=== PATIENT | male | born 1955 | race Caucasian/White ===

== ENCOUNTER → 2017-02-17 | Outpatient (CLI) | payer BC ==
[~2017-02-17] MED LIST: ASPCH81X PO; BROM0.07 OPR; GLC/500 PO; INSU3INJ2 SC; LISI-725 PO; PRED1SUS3 OPR; SIMV40TA4 PO; SITA100T3 PO
[2017-02-17 17:38] LABS: HEMATOCRIT 42.2 % (42-52); MEAN CELL VOLUME 90.4 fL (80-100); MEAN CORPUSCULAR HGB CONC 33.2 g/dl (32-36); MEAN PLATELET VOLUME 11.1 fL (7.4-10.4); PLATELET COUNT 246 K/uL (130-400); RED BLOOD COUNT 4.67 M/uL (4.7-6.1); WHITE BLOOD COUNT 5.33 K/uL (4.8-10.8)
[2017-02-17 18:11] LABS: ALT/SGPT 55 U/L (12-78); AST/SGOT 31 U/L (15-37); BLOOD UREA NITROGEN 13 mg/dl (7-18); BUN/CREATININE RATIO 15.2 (10-20); CARBON DIOXIDE 26 mmol/L (21-32); CHLORIDE 104 mmol/L (98-107); CREATININE 0.84 mg/dl (0.60-1.40); GLUCOSE 198 mg/dl (70-99); POTASSIUM 4.4 mmol/L (3.5-5.1); SODIUM 138 mmol/L (136-145)
[2017-02-17 18:21] LABS: ALB/GLOB RATIO 1.4 (0.9-2); ALKALINE PHOSPHATASE 41 U/L (45-117); CHOLESTEROL 111 mg/dl (0-200); CHOLESTEROL/HDL RATIO 2.5; HDL CHOLESTEROL 44 mg/dl; LDL CHOLESTEROL CALCULATED 42 mg/dl; TRIGLYCERIDES 125 mg/dl (0-150); VERY LOW DENSITY LIPOPROT CALC 25 mg/dl
[2017-02-18 07:03] LABS: ESTIMATED AVERAGE GLUCOSE 212 mg/dl; HA1C FLAG Normal (Normal)
== END | disposition home or self-care (01) ==
LOC: C.LABBFT 11:21
PROVIDERS: ATTEND Internal Medicine
DX: E11.65 Type 2 diabetes mellitus with hyperglycemia (principal)

== ENCOUNTER → 2017-08-12 | Outpatient (CLI) | payer BC ==
[2017-08-12 13:28] LABS: ALT/SGPT 47 U/L (12-78); BLOOD UREA NITROGEN 15 mg/dl (7-18); BUN/CREATININE RATIO 17.9 (10-20); CALCIUM 8.9 mg/dl (8.5-10.1); CARBON DIOXIDE 26 mmol/L (21-32); CHLORIDE 103 mmol/L (98-107); CHOLESTEROL 127 mg/dl (0-200); CREATININE 0.85 mg/dl (0.60-1.40); GLUCOSE 192 mg/dl (70-99); POTASSIUM 4.2 mmol/L (3.5-5.1); SODIUM 137 mmol/L (136-145); TRIGLYCERIDES 111 mg/dl (0-150); VERY LOW DENSITY LIPOPROT CALC 22 mg/dl
[2017-08-12 13:31] LABS: ALB/GLOB RATIO 1.2 (0.9-2); ALKALINE PHOSPHATASE 40 U/L (45-117); AST/SGOT 30 U/L (15-37); CHOLESTEROL/HDL RATIO 2.8; HDL CHOLESTEROL 45 mg/dl; LDL CHOLESTEROL CALCULATED 60 mg/dl
[2017-08-12 14:04] LABS: RATIO 8.3 mcg/mg (0-30.0)
[2017-08-12 14:04] LABS: ESTIMATED AVERAGE GLUCOSE 258 mg/dl; HA1C FLAG Normal (Normal)
== END | disposition home or self-care (01) ==
LOC: C.LABBFT 07:41
PROVIDERS: ATTEND Internal Medicine
DX: E11.65 Type 2 diabetes mellitus with hyperglycemia (principal)

== ENCOUNTER 2023-12-10 12:45 | Inpatient (IN) ==
[2023-12-10] MEDS: OPTIRAY 320 125ml IV ONE (13:10)
--- NOTE | 2023-12-10 13:14 | Emergency Department Note ---
Impression & Plan Stroke-like symptoms, Vertigo, Ataxia, Stenosis of left vertebral artery ED Provider Note NAME: SMILEY VILLALOBOS AGE: 68 SEX: M : 1955 ARRIVES VIA: Walk-In INFORMANT: Patient, the patient's [id number] ED PROVIDER(S): Elijah Harmon DO CHIEF COMPLAINT: Vertigo HPI: The patient is a 68-year-old male who presented to the emergency department for an evaluation of dizziness and vertigo. The patient's symptoms began at approximately 1030 this morning. 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 When he was inside resting he noticed he had an acute onset of dizziness and was unable to walk. Family brought him to the emergency department after his symptoms were not resolved. He was having trouble ambulating and kept falling forward. The patient denies having any headache. He denies having any fever or falling. He denies having any changes to his medications. He has no history of stroke but does have a history of diabetes as well as hypertension. ROS: See above HPI for pertinent positives & negatives. A total of 10 systems reviewed and were otherwise negative. PAST MEDICAL HISTORY: See Below PAST SURGICAL HISTORY: See Below FAMILY HISTORY: See Below SOCIAL HISTORY: See Below HOME MEDICATIONS: See Below ALLERGIES: See Below VITALS: See Below PHYSICAL EXAMINATION: GENERAL: Patient is awake and alert. The patient is anxious and does not want to open his eyes. EYES: The conjunctivae are clear. The pupils are round and reactive. There was nystagmus in both horizontal directions especially to the left. Some rotary nystagmus was also noted. EARS, NOSE, MOUTH AND THROAT: The nose is without any evidence of any deformity. Mucous membranes are moist. Tongue is midline. NECK: The neck is nontender and supple. RESPIRATORY: Normal respiratory effort is noted there is no evidence of wheezing rhonchi or rales CARDIOVASCULAR: Regular rate and rhythm noted there no murmurs rubs or gallops normal S1 normal S2. GASTROINTESTINAL: The abdomen is soft. Abdomen is nontender. MUSCULOSKELETAL/EXTREMITIES: There is no evidence of gross deformity full range of motion is noted in the hips and shoulders. SKIN: There is no obvious evidence of any rash. There are no petechiae, pallor or cyanosis noted. NEUROLOGIC: Patient is awake alert and oriented x3. Strength is symmetric. There is no drift in the upper extremities. The patient is able to hold each leg off the bed for greater than 5 seconds. [id number] was slow but appears symmetric. MEDICAL DECISION MAKING: The patient is a 68-year-old male who presented to the emergency department for an evaluation of dizziness. The patient was triaged to a regular room. After my evaluation I was concerned the patient may be suffering from a central nervous system cause for his vertigo. The patient did have rotary nystagmus. The patient had ataxia. Otherwise his physical exam did not reveal any focal neurologic deficits. He did have some episodes of some speech that was difficult to understand but his [id number] states that he sometimes will speak like this when he is not feeling well. Because of concerns for central nervous system cause he was made a stroke alert. He was taken directly to CAT scan and then moved to room A1. The patient was evaluated again in the resuscitation bay. Symptoms did not significantly change. I discussed his condition with the telestroke neurologist. After their evaluation as well as the patient's angiography showing vertebral artery stenosis it was felt that the patient may be suffering from a stroke causing his symptoms and therefore they recommended consideration for TNK. I evaluated the patient once again at bedside and at that time the stroke neurologist was on the telestroke machine. Risks and benefits were reviewed with the patient and verbally he consented to TNK. The TNK order set was used. I discussed the patient's condition with the [facility] hospitalist group. They have agreed to evaluate the patient in the emergency department for further management and disposition. The patient was treated with Zofran as well. Triage Nursing notes reviewed. Prior medical records reviewed Vital Signs: reviewed and remarkable for initial hypertension. Differential diagnosis: Benign positional vertigo, dehydration, hypovolemia, anemia, tumor, infection, hypoglycemia, electrolyte abnormalities, cardiac sources, intracerebral event, toxicologic, neurologic, as well as other pathologies. ER treatment provided: See below Diagnostics interpreted by me: ECG: EKG was obtained in the emergency department. My interpretation is normal sinus rhythm at 65 bpm. There is no ectopy. There is no acute ST segment abnormalities noted. This was compared to a tracing from April 19, 2022. No changes were noted. Cardiac Monitoring: An order was placed for continuous cardiac monitoring. The monitor shows a rate of 63 bpm with sinus rhythm Laboratory studies: As stated above and show below. Imaging studies: See below. Radiographic imaging was reviewed by myself Consultation(s): I discussed this case with Dr. Hopper who is on-call for the [facility] telestroke neurologist. I discussed this case with Chilango who is covering for the [facility] hospitalist group. ED COURSE: Procedures: none Critical Care: I have personally spent greater than 45 minutes of critical care time in the direct management of this patient. This includes bedside care, interpretation of diagnostic studies, and testing, discussion with consultants, patient, and family members, and other required patient management activities. This 45 minutes is in excess of all separately billable procedures. Thrombolytics MDM Reason(s) for Delay: It is possible there was a delay in administration of TNK given the patient was not identified as having strokelike symptoms initially through triage. As soon as he was evaluated he was made a stroke alert by myself. Past Med/Surg History Medical History Achilles rupture, left Hypothyroidism no meds at present History of COVID-25 Feb 2021 > not hospitalized Ileus, postoperative (2019) resolved on own Kidney mass LEFT > removed > benign Plantar fasciitis Hypertension Hyperlipidemia Surgical History H/O partial nephrectomy left. 07/01/19: Grade 2 view, MAC 4, ETT 8.0 atraumatic x 1. History of tooth extraction History of cataract surgery RT/LEFT History of total knee replacement RT History of colonoscopy Family History Grandfather Arthritis Grandmother Arthritis Mother Diabetes Hx of CABG Cancer Cardiac disorder Breast cancer Myocardial infarction Daughter Metastatic melanoma Father Cancer Prostate cancer Denies family history of Ovarian cancer Lung cancer Colorectal cancer Social History Smoking Status: Never smoker Second Hand Exposure: No; Do You Dip or Chew Tobacco: No; Hx Alcohol Use: No Hx Substance Use: No Preferred Language: Wallisian Communication Ability: Effective 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 Beliefs That Will Affect Care: None Current Living Situation: Family current occupational status: employed and retired Feels Safe at Home: Yes Diet: regular caffeine: Yes (rare ) Physical Activity Frequency: Daily Seatbelt Use: always Sunscreen Use: No Assistive Devices: Denture - Upper and Denture - Lower Allergies Allergies Allergy/AdvReac Type Severity Reaction Status Date / Time morphine AdvReac Intermediate SEVERE Verified 11/08/23 08:53 NAUSEA AND VOMITING Home Meds Home Medications Medication Instructions Recorded Confirmed naproxen sodium 220 mg tablet 440 - 880 mg PO BID PRN Pain 06/19/20 11/08/23 (Aleve) acetaminophen 325 mg tablet 325 mg PO QID PRN Pain 04/19/22 11/08/23 (Tylenol) aspirin 81 mg tablet,delayed 81 mg PO DAILY 12/27/22 11/08/23 release Previous Rx's Medication Instructions Recorded insulin syringe-needle U-100 0.5 #100 ea 03/23/19 mL 29 gauge x 1/2" (BD Insulin Syringe) blood sugar diagnostic (OneTouch #100 ea 12/03/20 Ultra Blue Test Strip) metformin 500 mg tablet 1,000 mg (2 x 500 mg) PO BID #360 01/04/23 tabs simvastatin 40 mg tablet 40 mg PO QPM #90 tabs 01/04/23 insulin human U-100 NPH-regulr 60 unit (0.6 mL) subcut BID #40 mL 01/31/23 70-30 mix 100 unit/mL subcutaneous susp (Novolin 70/30 U-100 Insulin) lisinopril 40 mg tablet 40 mg PO QAM 90 days #90 tabs 10/13/23 amlodipine 2.5 mg tablet 2.5 mg PO DAILY 30 days #30 tabs 11/08/23 tirzepatide 2.5 mg/0.5 mL 2.5 mg (0.5 mL) subcut .q7days 28 11/08/23 subcutaneous pen injector days #2 mL (Mounjaro) Results & Data (ED) Vital Signs Vital Signs - 24 hr 12/10/23 12:46 12/10/23 13:03 12/10/23 13:24 Temperature Temperature Source Pulse Rate 68 62 68 Pulse Rate [Apical] Pulse Rate from SpO2 Sensor 68 Pulse Rhythm [Apical] Pulse Strength [Apical] Respiratory Rate 26 H 17 Respiratory Effort / Characteristics Respiratory Depth Normal Respiratory Pattern Blood Pressure 169/77 H 153/74 H Blood Pressure [Right Arm] Blood Pressure Mean 107 100 Blood Pressure Mean [Right Arm] Blood Pressure Position [Right Arm] Pulse Oximetry 98 98 Oxygen Delivery Method Room Air Room Air Sepsis Recent Fever Within 48 Hours No Sepsis New/Unexplained Change in Mental Status No Sepsis Action Taken by Nursing No Action Required 12/10/23 13:30 12/10/23 13:45 12/10/23 14:00 Temperature Temperature Source Pulse Rate 63 67 68 Pulse Rate [Apical] Pulse Rate from SpO2 Sensor 63 67 68 Pulse Rhythm [Apical] Pulse Strength [Apical] Respiratory Rate 15 18 13 Respiratory Effort / Characteristics Respiratory Depth Respiratory Pattern Blood Pressure 152/66 H 149/69 H 147/65 H Blood Pressure [Right Arm] Blood Pressure Mean 94 95 92 Blood Pressure Mean [Right Arm] Blood Pressure Position [Right Arm] Pulse Oximetry 97 94 98 Oxygen Delivery Method Room Air Room Air Room Air Sepsis Recent Fever Within 48 Hours Sepsis New/Unexplained Change in Mental Status Sepsis Action Taken by Nursing 12/10/23 14:22 12/10/23 14:30 12/10/23 14:45 Temperature 36.8 C 36.7 C Temperature Source Oral Oral Pulse Rate Pulse Rate [Apical] 64 67 63 Pulse Rate from SpO2 Sensor Pulse Rhythm [Apical] Regular Regular Regular Pulse Strength [Apical] Normal Normal Normal Respiratory Rate 16 16 17 Respiratory Effort / Characteristics Non-Labored Spontaneous Non-Labored Spontaneous Non-Labored Spontaneous Respiratory Depth Normal Normal Normal Respiratory Pattern Regular Regular Regular Blood Pressure Blood Pressure [Right Arm] 136/69 132/70 137/72 Blood Pressure Mean Blood Pressure Mean [Right Arm] 91 90 93 Blood Pressure Position [Right Arm] Semi-fowlers Semi-fowlers Semi-fowlers Pulse Oximetry 97 98 100 Oxygen Delivery Method Room Air Room Air Room Air Sepsis Recent Fever Within 48 Hours Sepsis New/Unexplained Change in Mental Status Sepsis Action Taken by Nursing 12/10/23 14:45 Temperature 36.7 C Temperature Source Oral Pulse Rate Pulse Rate [Apical] 63 Pulse Rate from SpO2 Sensor Pulse Rhythm [Apical] Regular Pulse Strength [Apical] Normal Respiratory Rate 17 Respiratory Effort / Characteristics Non-Labored Spontaneous Respiratory Depth Normal Respiratory Pattern Regular Blood Pressure Blood Pressure [Right Arm] 137/72 Blood Pressure Mean Blood Pressure Mean [Right Arm] 93 Blood Pressure Position [Right Arm] Semi-fowlers Pulse Oximetry 99 Oxygen Delivery Method Room Air Sepsis Recent Fever Within 48 Hours Sepsis New/Unexplained Change in Mental Status Sepsis Action Taken by Alf Medications Current Medication List: was personally reviewed by nv Laboratory Data Attestation: I reviewed the patient's lab results. 12/10/23 13:00 12/10/23 13:00 Lab Results 12/10/23 12/10/23 Range/Units 12:53 13:00 WBC 10.68 (4.8-10.8) K/ul RBC 4.57 L (4.70-6.10) M/uL Hgb 13.6 L (14.0-18.0) g/dl Hct 40.7 L (42.0-52.0) % MCV 89.1 (80.0-100.0) fL MCH 29.8 (25.0-34.0) pg MCHC 33.4 (32.0-36.0) g/dL RDW Std Deviation 40.1 (36.4-46.3) fL RDW Coeff of Anibal 12.3 (11.5-14.5) % Plt Count 315 (130-400) K/uL MPV 9.8 (9.4-12.4) fL Immature Gran % (Auto) 0.6 % Neut % (Auto) 67.2 % Lymph % (Auto) 25.6 % Lagrange % (Auto) 5.1 % Eos % (Auto) 1.2 % Baso % (Auto) 0.3 % Neut # (Auto) 7.18 H (1.40-6.50) K/uL Lymph # (Auto) 2.73 (1.20-3.40) K/uL Lagrange # (Auto) 0.55 (0.11-0.59) K/uL Eos # (Auto) 0.13 (0.00-0.50) K/uL Baso # (Auto) 0.03 (0.00-0.20) K/uL Immature Gran # (Auto) 0.06 (0.01-0.20) K/uL PT 11.0 (9.0-12.0) Seconds INR 1.0 (0.9-1.1) APTT 23 (21-31) Seconds PTT Ratio 0.8 Sodium 137 (136-145) mmol/L Potassium 4.1 (3.5-5.1) mmol/L Chloride 100 (98-107) mmol/L Carbon Dioxide 25 (21-32) mmol/L Anion Gap 12 H (3-11) BUN 23 (6-23) mg/dl Creatinine 0.78 (0.6-1.4) mg/dl Est Cr Clr Drug Dosing 120.6 ml/min Est GFR ( Amer) 109.0 ml/min Est GFR (Non-Af Amer) 94.1 ml/min BUN/Creatinine Ratio 29.5 H (10-20) Glucose 190 H (70-99(Fasting)) mg/dl POC Glucose 168 H (70-99) mg/dl Calcium 9.9 (8.6-10.3) mg/dl Magnesium 1.7 (1.7-2.4) mg/dl Total Bilirubin 0.6 (0.2-1.0) mg/dl AST 24 (13-39) U/L ALT 24 (7-52) U/L Alkaline Phosphatase 36 (34-104) U/L Troponin I High Sens 3.0 (0-20) pg/ml Total Protein 7.7 (6.0-8.3) gm/dl Albumin 4.4 (3.4-5.0) gm/dl Globulin 3.3 (2.5-4.0) gm/dl Albumin/Globulin Ratio 1.3 (0.9-2) Administered Medications Discontinued Medications Tenecteplase 25 mg/ Syringe 5 mls @ 60 mls/min IV NOW ONE; Protocol Stop: 12/10/23 14:10 Last Admin: 12/10/23 14:07 Dose: 60 mls/min Documented By: JAMES Co-signed By: ZIGGY Ioversol (Optiray 320 125ml) 116 ml IV ONCE ONE Stop: 12/10/23 13:10 Last Admin: 12/10/23 13:10 Dose: 116 ml Documented By: SILVINO Lorazepam (Lorazepam 1 Mg/1 Ml Syr Ed Inj Use) 0.5 mg IV ONE STA Stop: 12/10/23 13:04 Last Admin: 12/10/23 13:27 Dose: Not Given Documented By: JAMES Ondansetron HCl (Ondansetron Inj 2 Mg/Ml 2 Ml Vial) 4 mg IV NOW STA Stop: 12/10/23 13:04 Last Admin: 12/10/23 13:27 Dose: 4 mg Documented By: JAMES Sodium Chloride (Sodium Chloride 0.9% 10ml Flush) 20 ml IV NOW STA Stop: 12/10/23 14:00 Last Admin: 12/10/23 14:07 Dose: 20 ml Documented By: JAMES Imaging Data Attestation: I personally reviewed and interpreted this imaging study as follows: My Impression: 1 view chest x-ray was obtained in the emergency department. My interpretation is no free air or definite infiltrate, final report below. CT of the brain was obtained in the emergency department. My interpretation is no intracranial hemorrhage or mass effect, final report below. Radiologist's Impression: Chest X-Ray 12/10/23 13:03 XR chest 1V portable HISTORY: 68 years-old Male neuro deficit, acute stroke suspected acute strokelike symptoms COMPARISON: 06/07/2019 TECHNIQUE: AP view of the chest FINDINGS: Cardiac silhouette is enlarged. No pneumothorax, pleural effusion or overt pulmonary edema. Mild chronic interstitial coarsening. Bones appear grossly intact. IMPRESSION: No acute process. ACT 112: Negative or not required by law. The above report was generated using voice recognition software. It may contain grammatical, syntax or spelling errors. Electronically signed by: Kamaljit Conroy M.D. 12/10/2023 1:[address] 12/10/23 13:03 CT angio head w con, CT angio neck with con, CT head/brain wo con CLINICAL HISTORY: 68 years-old Male with neuro deficit, acute stroke suspected. Acute stroke like symptoms COMPARISON STUDY: None TECHNIQUE: Unenhanced axial CT scan of the brain is performed. Subsequently, following the IV administration of 116 cc of Optiray, CT angiogram of the head and neck was performed from the aortic arch to the skull apex. Images are reviewed in the axial, sagittal, and coronal planes. 3-D MIPS images are created and assessed. IV contrast was administered without complication. All measurements were obtained according to NASCET criteria. A dose lowering technique was utilized adhering to the principles of ALARA. CT DOSE: 1308.62 mGy.cm FINDINGS: CT BRAIN: There is no acute intracranial hemorrhage, midline shift, hydrocephalus, intracranial mass, territorial ischemia or abnormal extra-axial collections. No abnormal intra-axial or extra-axial enhancement. Involutional changes with probable mild chronic microvascular ischemic disease. Mastoid air cells and middle ear cavities are clear. No calvarial fracture. Mild mucosal thickening of the paranasal sinuses.. CT ANGIOGRAM OF THE HEAD AND NECK: Three-vessel morphology of the thoracic aortic arch. There is patency of the innominate and imaged subclavian arteries. The common and internal carotid arteries are widely patent. The bilateral anterior and middle cerebral arteries are also patent. Codominant vertebral arteries. Calcified plaque in the V4 segment left vertebral artery results in high-grade stenosis on image 25 series 6. This is likely chronic. Mild multifocal stenoses of the patent basilar artery. There is no aneurysm, high-grade stenosis, or proximal branch occlusion identified. Dural sinuses appear patent. Pulmonary apices are clear. No pneumothorax. Unremarkable soft tissues. No acute fracture. IMPRESSION: 1. No acute intracranial abnormality. 2. Calcified plaque of the V4 segment left vertebral artery results in short segment high-grade stenosis. 3. Otherwise unremarkable CTA of the head and neck. ACT 112: Negative or not required by law. The above report was generated using voice recognition software. It may contain grammatical, syntax or spelling errors. Electronically signed by: Kamaljit Conroy M.D. 12/10/2023 1:29 PM Head CTA 12/10/23 13:03 CT angio head w con, CT angio neck with con, CT head/brain wo con CLINICAL HISTORY: 68 years-old Male with neuro deficit, acute stroke suspected. Acute stroke like symptoms COMPARISON STUDY: None TECHNIQUE: Unenhanced axial CT scan of the brain is performed. Subsequently, following the IV administration of 116 cc of Optiray, CT angiogram of the head and neck was performed from the aortic arch to the skull apex. Images are reviewed in the axial, sagittal, and coronal planes. 3-D MIPS images are created and assessed. IV contrast was administered without complication. All measurements were obtained according to NASCET criteria. A dose lowering technique was utilized adhering to the principles of ALARA. CT DOSE: 1308.62 mGy.cm FINDINGS: CT BRAIN: There is no acute intracranial hemorrhage, midline shift, hydrocephalus, intracranial mass, territorial ischemia or abnormal extra-axial collections. No abnormal intra-axial or extra-axial enhancement. Involutional changes with probable mild chronic microvascular ischemic disease. Mastoid air cells and middle ear cavities are clear. No calvarial fracture. Mild mucosal thickening of the paranasal sinuses.. CT ANGIOGRAM OF THE HEAD AND NECK: Three-vessel morphology of the thoracic aortic arch. There is patency of the innominate and imaged subclavian arteries. The common and internal carotid arteries are widely patent. The bilateral anterior and middle cerebral arteries are also patent. Codominant vertebral arteries. Calcified plaque in the V4 segment left vertebral artery results in high-grade stenosis on image 25 series 6. This is likely chronic. Mild multifocal stenoses of the patent basilar artery. There is no aneurysm, high-grade stenosis, or proximal branch occlusion identified. Dural sinuses appear patent. Pulmonary apices are clear. No pneumothorax. Unremarkable soft tissues. No acute fracture. IMPRESSION: 1. No acute intracranial abnormality. 2. Calcified plaque of the V4 segment left vertebral artery results in short segment high-grade stenosis. 3. Otherwise unremarkable CTA of the head and neck. ACT 112: Negative or not required by law. The above report was generated using voice recognition software. It may contain grammatical, syntax or spelling errors. Electronically signed by: Kamaljit Conroy M.D. 12/10/2023 1:29 PM Neck CTA 12/10/23 13:03 CT angio head w con, CT angio neck with con, CT head/brain wo con CLINICAL HISTORY: 68 years-old Male with neuro deficit, acute stroke suspected. Acute stroke like symptoms COMPARISON STUDY: None TECHNIQUE: Unenhanced axial CT scan of the brain is performed. Subsequently, following the IV administration of 116 cc of Optiray, CT angiogram of the head and neck was performed from the aortic arch to the skull apex. Images are reviewed in the axial, sagittal, and coronal planes. 3-D MIPS images are created and assessed. IV contrast was administered without complication. All measurements were obtained according to NASCET criteria. A dose lowering technique was utilized adhering to the principles of ALARA. CT DOSE: 1308.62 mGy.cm FINDINGS: CT BRAIN: There is no acute intracranial hemorrhage, midline shift, hydrocephalus, intracranial mass, territorial ischemia or abnormal extra-axial collections. No abnormal intra-axial or extra-axial enhancement. Involutional changes with probable mild chronic microvascular ischemic disease. Mastoid air cells and middle ear cavities are clear. No calvarial fracture. Mild mucosal thickening of the paranasal sinuses.. CT ANGIOGRAM OF THE HEAD AND NECK: Three-vessel morphology of the thoracic aortic arch. There is patency of the innominate and imaged subclavian arteries. The common and internal carotid arteries are widely patent. The bilateral anterior and middle cerebral arteries are also patent. Codominant vertebral arteries. Calcified plaque in the V4 segment left vertebral artery results in high-grade stenosis on image 25 series 6. This is likely chronic. Mild multifocal stenoses of the patent basilar artery. There is no aneurysm, high-grade stenosis, or proximal branch occlusion identified. Dural sinuses appear patent. Pulmonary apices are clear. No pneumothorax. Unremarkable soft tissues. No acute fracture. IMPRESSION: 1. No acute intracranial abnormality. 2. Calcified plaque of the V4 segment left vertebral artery results in short segment high-grade stenosis. 3. Otherwise unremarkable CTA of the head and neck. ACT 112: Negative or not required by law. The above report was generated using voice recognition software. It may contain grammatical, syntax or spelling errors. Electronically signed by: Kamaljit Conroy M.D. 12/10/2023 1:29 PM Discharge Plan Visit Data Chief Complaint: Illness Stated Complaint: DIZZY SPELLS, VOMITING, NUMB ED Provider: Elijah Harmon Discharge Problem: Stroke-like symptoms, Vertigo, Ataxia, Stenosis of left vertebral artery Patient Disposition: Being Evaluated by Hospitalist Forms Stand Alone Forms: [facility] [employer] Prescriptions Prescriptions: No Action (DME) insulin syringe-needle U-100 [BD Insulin Syringe] 0.5 mL 29 gauge x 1/2" syringe See Dose Instructions .ROUTE .MEDSUPPLY Qty: 100 5RF Dose Instruction: As directed Rx Instructions: use daily when injecting insulin or as directed (DME) OneTouch Ultra Blue Test Strip Strip See Rx Instructions .ROUTE .MEDSUPPLY Qty: 100 5RF Rx Instructions: TEST FOUR TIMES DAILY. metformin 500 mg tablet 1,000 mg PO BID Qty: 360 3RF simvastatin 40 mg tablet 40 mg PO QPM Qty: 90 3RF Novolin 70/30 U-100 Insulin 100 unit/mL (70-30) suspension 60 unit SQ BID Qty: 40 11RF lisinopril 40 mg tablet 40 mg PO QAM 90 Days Qty: 90 2RF aspirin 81 mg tablet,delayed release (DR/EC) 81 mg PO DAILY amlodipine 2.5 mg tablet 2.5 mg PO DAILY 30 Days Qty: 30 2RF Mounjaro 2.5 mg/0.5 mL pen injector 2.5 mg subcut .q7days 28 Days Qty: 2 1RF naproxen sodium [Aleve] 220 mg Tablet 440 - 880 mg PO BID PRN (Reason: Pain) acetaminophen [Tylenol] 325 mg Tablet 325 mg PO QID PRN (Reason: Pain) Referrals Referrals: Francoise Carlton MD [Primary Care Provider] -
[2023-12-10 13:23] LABS: Basophils # (auto) 0.03 K/uL (0.00-0.20); Basophils % (auto) 0.3 %; Eosinophils # (auto) 0.13 K/uL (0.00-0.50); Eosinophils % (auto) 1.2 %; Hematocrit (blood only) 40.7 % (42.0-52.0); Hemoglobin 13.6 g/dl (14.0-18.0); Immature Granulocytes # (auto) 0.06 K/uL (0.01-0.20); Immature Granulocytes % (auto) 0.6 %; Lymphocytes # (auto) 2.73 K/uL (1.20-3.40); Lymphocytes % (auto) 25.6 %; Mean Corpuscular Hemoglobin 29.8 pg (25.0-34.0); Mean Corpuscular Hgb Conc 33.4 g/dL (32.0-36.0); Mean Corpuscular Volume 89.1 fL (80.0-100.0); Mean Platelet Volume 9.8 fL (9.4-12.4); Monocytes # (auto) 0.55 K/uL (0.11-0.59); Monocytes % (auto) 5.1 %; Neutrophils # (auto) 7.18 K/uL (1.40-6.50); Neutrophils % (auto) 67.2 %; Platelet Count 315 K/uL (130-400); RDW Coefficient of Variation 12.3 % (11.5-14.5); RDW Standard Deviation 40.1 fL (36.4-46.3); Red Blood Count 4.57 M/uL (4.70-6.10); White Blood Count 10.68 K/ul (4.8-10.8)
[2023-12-10] MEDS: ONDANSETRON INJ 2 MG/ML 2 ML VIAL IV STA (13:27)
[2023-12-10] MEDS: LORazepam 1 MG/1 ML SYR ED Inj Use IV STA (13:27)
--- NOTE | 2023-12-10 13:31 | CT Scan Report ---
CT angio head w con, CT angio neck with con, CT head/brain wo con CLINICAL HISTORY: 68 years-old Male with neuro deficit, acute stroke suspected. Acute stroke like symptoms COMPARISON STUDY: None TECHNIQUE: Unenhanced axial CT scan of the brain is performed. Subsequently, following the IV adminis tration of 116 cc of Optiray, CT angiogram of the head and neck was performed from the aortic arch to the skull apex. Images are reviewed in the axial, sagittal, and coronal planes. 3-D MIPS images are created and assessed. IV contrast was administered without complication. All measurements were obtain ed according to NASCET criteria. A dose lowering technique was utilized adhering to the principles of ALARA. CT DOSE: 1308.62 mGy.cm FINDINGS: CT BRAIN: There is no acute intracranial hemorrhage, midline shift, hydrocephalus, intracranial mass, territori al ischemia or abnormal extra-axial collections. No abnormal intra-axial or extra-axial enhancement. Involutional changes with probable mild chronic microvascular ischemic disease. Mastoid air cells and middle ear cavities are clear. No calvarial fracture. Mild mucosal thickening of the paranasal sinus es.. CT ANGIOGRAM OF THE HEAD AND NECK: Three-vessel morphology of the thoracic aortic arch. There is patency of the innominate and imaged hoffman bclavian arteries. The common and internal carotid arteries are widely patent. The bilateral anterior and middle cerebral arteries are also patent. Codominant vertebral arteries. Calcified plaque in the V4 segment left vertebral artery results in high-grade stenosis on image 25 series 6. This is likely chronic. Mild multifocal stenoses of the patent basilar artery. There is no aneurysm, high-grade obed nosis, or proximal branch occlusion identified. Dural sinuses appear patent. Pulmonary apices are clear. No pneumothorax. Unremarkable soft tissues. No acute fracture. IMPRESSION: 1. No acute intracranial abnormality. 2. Calcified plaque of the V4 segment left vertebral artery results in short segment high-grade steno sis. 3. Otherwise unremarkable CTA of the head and neck. ACT 112: Negative or not required by law. The above report was generated using voice recognition software. It may contain grammatical, syntax o r spelling errors. Electronically signed by: Kamaljit Conroy M.D. 12/10/2023 1:29 PM
[2023-12-10 13:32] LABS: Albumin Globulin Ratio 1.3 (0.9-2); Albumin Level 4.4 gm/dl (3.4-5.0); BUN Creatinine Ratio 29.5 (10-20); Bilirubin,Total 0.6 mg/dl (0.2-1.0); Calcium 9.9 mg/dl (8.6-10.3); Creatinine Clr Calc Pharmacy 120.6 ml/min; Est GFR (Non-African American) 94.1 ml/min; Globulin 3.3 gm/dl (2.5-4.0); Magnesium 1.7 mg/dl (1.7-2.4); Potassium 4.1 mmol/L (3.5-5.1); Total Protein 7.7 gm/dl (6.0-8.3)
[2023-12-10 13:48] LABS: Partial Thromboplastin Ratio 0.8; Partial Thromboplastin Time 23 Seconds (21-31)
--- NOTE | 2023-12-10 13:58 | XRay Report ---
XR chest 1V portable HISTORY: 68 years-old Male neuro deficit, acute stroke suspected acute strokelike symptoms COMPARISON: 06/07/2019 TECHNIQUE: AP view of the chest FINDINGS: Cardiac silhouette is enlarged. No pneumothorax, pleural effusion or overt pulmonary edema. Mild psychiatry instructor yancy interstitial coarsening. Bones appear grossly intact. IMPRESSION: No acute process. ACT 112: Negative or not required by law. The above report was generated using voice recognition software. It may contain grammatical, syntax o r spelling errors. Electronically signed by: Kamaljit Conroy M.D. 12/10/2023 1:55 PM
[2023-12-10] MEDS ORDERED: No Aspirin within 24hrs of THROMBOLYTIC-Stroke PO SCH (14:00)
[2023-12-10] MEDS: TENECTEPLASE 25 MG in SYRINGE 0 ML IV ONE (14:07)
[2023-12-10] MEDS: SODIUM CHLORIDE 0.9% 10ML FLUSH IV STA (14:07)
--- NOTE | 2023-12-10 14:28 | History & Physical Report ---
Date of Service December 10, 2023 Assessment & Plan (1) Stenosis of left vertebral artery: Plan: Attending: Dr. Ivey Impression: This is a 68 yo male that presents with vertigo and some confusion. CTA Head and neck revealed high grade stenosis of V4 vertebral artery. TNK was administered. 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: Plan: Improved per report of patient Methylprednisolone 40mg IV q8h brien Meclizine 12.5mg PO TID brien Activity with assistance and then per nursing protocol (3) Stroke-like symptoms: Plan: See #1 above (4) Type 2 diabetes mellitus with obesity: Plan: Hold Novolin and Mounjaro Hyperglycemic consult requested NPO for now as patient is monitored for TNK HA1c 11/03/2023 7.5% (5) Angiomyolipoma of kidney: Plan: S/P partial nephrectomy 2019 Pathology benign Follow serial BMP (6) Hypertension: Plan: Allow for permissive hypertension Hold Lisinopril and Amlodipine Monitor on telemetry Vital signs per protocol (7) Hyperlipidemia: Plan: Hold atorvastatin for now. Anticipate that we will resume 40mg PO Daily tomorrow am Plan DVT prophylaxis: ELISABETH Nguyens. Hold chemical prophylaxis secondary to administration of TNK Diet NPO for now. If patient continues with NIH score of "0", resume per [facility] Code status: Patient DNR/DNI per his express wishes Case discussed with Dr. Ivey. Please refer to his addendum for further recommendations History of Present Illness Chief Complaint: Acute CVA vs positional vertigo Primary Care Provider: Francoise Carlton MD Attending: Dr. Ivey This is a 68-year-old male that follows with Dr. Francoise Carl[place] [facility] [place] He has a PMH including diabetes mellitus type 2 requiring insulin, obesity with BMI of 35.6 kg/m thyroidism, history of COVID-19, postoperative ileus in 2019, plantar fasciitis,, hypertension, hyperlipidemia. Patient also has a history of kidney mass and underwent partial nephrectomy. Patient presents today with vertigo. He was found to have some nystagmus on examination. NIH score was "0". He underwent CTA of the head head and neck which revealed high grade stenosis in the V4 segment of the left vertebral artery. Neurology was consulted and the decision was made to administer 25mg of Tenecteplase. This was administered at 14:09pm. Patient seen in emergency department at 14:27 for admission to the ICU for 24 hour observation. Patient denies any previous history of stroke or thromboembolic disease. No history of tobacco abuse. Home medications do include Atovastatin 40mg PO daily Allergies Allergy/AdvReac Type Severity Reaction Status Date / Time morphine AdvReac Intermediate SEVERE Verified 11/08/23 08:53 NAUSEA AND VOMITING Home Medications Medication Instructions Recorded Confirmed Type insulin syringe-needle U-100 0.5 #100 ea 03/23/19 12/10/23 Rx mL 29 gauge x 1/2" (BD Insulin Syringe) blood sugar diagnostic (OneTouch #100 ea 12/03/20 12/10/23 Rx Ultra Blue Test Strip) acetaminophen 325 mg tablet 650 mg PO QID PRN Pain 04/19/22 12/10/23 History (Tylenol) amlodipine 2.5 mg tablet 2.5 mg PO QAM 12/10/23 12/10/23 History aspirin 81 mg tablet,delayed 81 mg PO QAM 12/10/23 12/10/23 History release empagliflozin 25 mg tablet 25 mg PO QAM 12/10/23 12/10/23 History (Jardiance) insulin human U-100 NPH-regulr 60 unit subcut BID 12/10/23 12/10/23 History 70-30 mix 100 unit/mL subcutaneous susp (Novolin 70/30 U-100 Insulin) lisinopril 40 mg tablet 40 mg PO QAM 12/10/23 12/10/23 History metformin 500 mg tablet 1,000 mg PO BID 12/10/23 12/10/23 History simvastatin 40 mg tablet 40 mg PO QPM 12/10/23 12/10/23 History tirzepatide 2.5 mg/0.5 mL 2.5 mg subcut WK 12/10/23 12/10/23 History subcutaneous pen injector (Mounjaro) Past Med/Surg History Medical History (Updated 12/10/23 @ 15:10 by Zechariah Garcia MD) 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 07/01/19: Grade 2 view, MAC 4, ETT 8.0 atraumatic x 1. History of tooth extraction History of cataract surgery RT/LEFT History of total knee replacement RT History of colonoscopy Family History Grandfather Arthritis Grandmother Arthritis Mother Diabetes Hx of CABG Cancer Cardiac disorder Breast cancer Myocardial infarction Daughter Metastatic melanoma Father Cancer Prostate cancer Denies family history of Ovarian cancer Lung cancer Colorectal cancer Social History Smoking Status: Never smoker Second Hand Exposure: No; Do You Dip or Chew Tobacco: No; Hx Alcohol Use: No Hx Substance Use: No Preferred Language: Salvadorean Communication Ability: Effective Chemical Laboratory Technician Required: No Beliefs That Will Affect Care: None Current Living Situation: Family current occupational status: employed and retired Feels Safe at Home: Yes Diet: regular caffeine: Yes (rare ) Physical Activity Frequency: Daily Seatbelt Use: always Sunscreen Use: No Assistive Devices: Denture - Upper and Denture - Lower Review of Systems 2 Review of Systems: A total of 10 systems was reviewed and is negative other than as listed in the HPI Physical Exam 2 Physical Exam: GENERAL : No acute distress. Some slurred speech but [id number] sates that this is not unusual EYES: No icterus, gaze conjugate. PERRL NOSE: No evidence of epistaxis MOUTH: No lesions or candidiasis. No deviation of the tongue. No facial droop NECK: Supple. No carotid bruits LUNGS: CTA B/L, no wheezes, rales or rhonchi. Good inspirational effort. No induced cough. Patient has good cough effort HEART: Regular, rate controlled. No M/G/Rs ABDOMEN: Soft, NT, ND, BS Present. No rebound tenderness or guarding EXTREMITIES: No LE edema, pedal pulses intact and equal bilaterally NEURO: A&OX3. No pronator drift. DTRs 2/4 to bilateral brachioradialis and patellar tendons. PERRL. Strength equal and appropriate to upper and lower extremities bilaterally. Cerebellar function intact with rapid alternating movements, finger to nose, and heel to hartley. Gait and Romberg deferred. Sensation equal and intact bilaterally to face, arms, hands, legs, and feet. Results & Data Results & Data Vital Signs (Past 12 Hours) Vital Signs Pulse Resp BP Pulse Ox O2 Del Method 12/10/23 14:00 68 13 147/65 H 98 Room Air 12/10/23 13:45 67 18 149/69 H 94 Room Air 12/10/23 13:30 63 15 152/66 H 97 Room Air 12/10/23 13:24 68 17 153/74 H 98 Room Air 12/10/23 13:03 62 12/10/23 12:46 68 26 H 169/77 H 98 Room Air Laboratory Results Abnormal lab results 12/10/23 12/10/23 Range/Units 12:53 13:00 RBC 4.57 L (4.70-6.10) M/uL Hgb 13.6 L (14.0-18.0) g/dl Hct 40.7 L (42.0-52.0) % Neut # (Auto) 7.18 H (1.40-6.50) K/uL Anion Gap 12 H (3-11) BUN/Creatinine Ratio 29.5 H (10-20) Glucose 190 H (70-99(Fasting)) mg/dl POC Glucose 168 H (70-99) mg/dl 12/10/23 13:00 12/10/23 13:00 Diagnostic Findings Chest X-Ray 12/10/23 13:03 XR chest 1V portable HISTORY: 68 years-old Male neuro deficit, acute stroke suspected acute strokelike symptoms COMPARISON: 06/07/2019 TECHNIQUE: AP view of the chest FINDINGS: Cardiac silhouette is enlarged. No pneumothorax, pleural effusion or overt pulmonary edema. Mild chronic interstitial coarsening. Bones appear grossly intact. IMPRESSION: No acute process. ACT 112: Negative or not required by law. The above report was generated using voice recognition software. It may contain grammatical, syntax or spelling errors. Electronically signed by: Kamaljit Conroy M.D. 12/10/2023 1:[address] 12/10/23 13:03 CT angio head w con, CT angio neck with con, CT head/brain wo con CLINICAL HISTORY: 68 years-old Male with neuro deficit, acute stroke suspected. Acute stroke like symptoms COMPARISON STUDY: None TECHNIQUE: Unenhanced axial CT scan of the brain is performed. Subsequently, following the IV administration of 116 cc of Optiray, CT angiogram of the head and neck was performed from the aortic arch to the skull apex. Images are reviewed in the axial, sagittal, and coronal planes. 3-D MIPS images are created and assessed. IV contrast was administered without complication. All measurements were obtained according to NASCET criteria. A dose lowering technique was utilized adhering to the principles of ALARA. CT DOSE: 1308.62 mGy.cm FINDINGS: CT BRAIN: There is no acute intracranial hemorrhage, midline shift, hydrocephalus, intracranial mass, territorial ischemia or abnormal extra-axial collections. No abnormal intra-axial or extra-axial enhancement. Involutional changes with probable mild chronic microvascular ischemic disease. Mastoid air cells and middle ear cavities are clear. No calvarial fracture. Mild mucosal thickening of the paranasal sinuses.. CT ANGIOGRAM OF THE HEAD AND NECK: Three-vessel morphology of the thoracic aortic arch. There is patency of the innominate and imaged subclavian arteries. The common and internal carotid arteries are widely patent. The bilateral anterior and middle cerebral arteries are also patent. Codominant vertebral arteries. Calcified plaque in the V4 segment left vertebral artery results in high-grade stenosis on image 25 series 6. This is likely chronic. Mild multifocal stenoses of the patent basilar artery. There is no aneurysm, high-grade stenosis, or proximal branch occlusion identified. Dural sinuses appear patent. Pulmonary apices are clear. No pneumothorax. Unremarkable soft tissues. No acute fracture. IMPRESSION: 1. No acute intracranial abnormality. 2. Calcified plaque of the V4 segment left vertebral artery results in short segment high-grade stenosis. 3. Otherwise unremarkable CTA of the head and neck. ACT 112: Negative or not required by law. The above report was generated using voice recognition software. It may contain grammatical, syntax or spelling errors. Electronically signed by: Kamaljit Conroy M.D. 12/10/2023 1:29 PM L Head CTA 12/10/23 13:03 CT angio head w con, CT angio neck with con, CT head/brain wo con CLINICAL HISTORY: 68 years-old Male with neuro deficit, acute stroke suspected. Acute stroke like symptoms COMPARISON STUDY: None TECHNIQUE: Unenhanced axial CT scan of the brain is performed. Subsequently, following the IV administration of 116 cc of Optiray, CT angiogram of the head and neck was performed from the aortic arch to the skull apex. Images are reviewed in the axial, sagittal, and coronal planes. 3-D MIPS images are created and assessed. IV contrast was administered without complication. All measurements were obtained according to NASCET criteria. A dose lowering technique was utilized adhering to the principles of ALARA. CT DOSE: 1308.62 mGy.cm FINDINGS: CT BRAIN: There is no acute intracranial hemorrhage, midline shift, hydrocephalus, intracranial mass, territorial ischemia or abnormal extra-axial collections. No abnormal intra-axial or extra-axial enhancement. Involutional changes with probable mild chronic microvascular ischemic disease. Mastoid air cells and middle ear cavities are clear. No calvarial fracture. Mild mucosal thickening of the paranasal sinuses.. CT ANGIOGRAM OF THE HEAD AND NECK: Three-vessel morphology of the thoracic aortic arch. There is patency of the innominate and imaged subclavian arteries. The common and internal carotid arteries are widely patent. The bilateral anterior and middle cerebral arteries are also patent. Codominant vertebral arteries. Calcified plaque in the V4 segment left vertebral artery results in high-grade stenosis on image 25 series 6. This is likely chronic. Mild multifocal stenoses of the patent basilar artery. There is no aneurysm, high-grade stenosis, or proximal branch occlusion identified. Dural sinuses appear patent. Pulmonary apices are clear. No pneumothorax. Unremarkable soft tissues. No acute fracture. IMPRESSION: 1. No acute intracranial abnormality. 2. Calcified plaque of the V4 segment left vertebral artery results in short segment high-grade stenosis. 3. Otherwise unremarkable CTA of the head and neck. ACT 112: Negative or not required by law. The above report was generated using voice recognition software. It may contain grammatical, syntax or spelling errors. Electronically signed by: Kamaljit Conroy M.D. 12/10/2023 1:29 PM L Neck CTA 12/10/23 13:03 CT angio head w con, CT angio neck with con, CT head/brain wo con CLINICAL HISTORY: 68 years-old Male with neuro deficit, acute stroke suspected. Acute stroke like symptoms COMPARISON STUDY: None TECHNIQUE: Unenhanced axial CT scan of the brain is performed. Subsequently, following the IV administration of 116 cc of Optiray, CT angiogram of the head and neck was performed from the aortic arch to the skull apex. Images are reviewed in the axial, sagittal, and coronal planes. 3-D MIPS images are created and assessed. IV contrast was administered without complication. All measurements were obtained according to NASCET criteria. A dose lowering technique was utilized adhering to the principles of ALARA. CT DOSE: 1308.62 mGy.cm FINDINGS: CT BRAIN: There is no acute intracranial hemorrhage, midline shift, hydrocephalus, intracranial mass, territorial ischemia or abnormal extra-axial collections. No abnormal intra-axial or extra-axial enhancement. Involutional changes with probable mild chronic microvascular ischemic disease. Mastoid air cells and middle ear cavities are clear. No calvarial fracture. Mild mucosal thickening of the paranasal sinuses.. CT ANGIOGRAM OF THE HEAD AND NECK: Three-vessel morphology of the thoracic aortic arch. There is patency of the innominate and imaged subclavian arteries. The common and internal carotid arteries are widely patent. The bilateral anterior and middle cerebral arteries are also patent. Codominant vertebral arteries. Calcified plaque in the V4 segment left vertebral artery results in high-grade stenosis on image 25 series 6. This is likely chronic. Mild multifocal stenoses of the patent basilar artery. There is no aneurysm, high-grade stenosis, or proximal branch occlusion identified. Dural sinuses appear patent. Pulmonary apices are clear. No pneumothorax. Unremarkable soft tissues. No acute fracture. IMPRESSION: 1. No acute intracranial abnormality. 2. Calcified plaque of the V4 segment left vertebral artery results in short segment high-grade stenosis. 3. Otherwise unremarkable CTA of the head and neck. ACT 112: Negative or not required by law. The above report was generated using voice recognition software. It may contain grammatical, syntax or spelling errors. Electronically signed by: Kamaljit Conroy M.D. 12/10/2023 1:29 PM Medications Administered Code Status & VTE Plan Code Status Discussion with patient with [id number] present. He wishes to be a DNR/DNI and does not wish to has chest compressions or mechanical ventilation in the event of cardiopulmonary arrest Critical Care Time 45 minutes of critical care time Supervising Physician Co-Signing Physician Notes The patient was seen by me. The chart was reviewed. Case discussed with ANDERS Posada. Brain MRI scan report is pending. This could simply be an acute labyrinthitis. For the time being, he is on scheduled meclizine and parenteral Solu-Medrol. 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
[2023-12-10] MEDS ORDERED: PHARMACIST DISCHARGE MED REC CONSULT PRN ×2 (15:14→16:16)
--- NOTE | 2023-12-10 15:16 | Critical Care Consultation ---
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 Continue frequent neurovascular checks in the ICU. Maintain systolic blood pressures and diastolic blood pressures within goal. Head of the bed above 35 degrees. Aspiration precautions. Patient will need PT, OT and speech therapy consultations. Obtain echo study. Monitor on telemetry. Follow-up CT head in 24 hours to ensure no evidence of transformation from ischemia to hemorrhagic stroke. Patient will need an MRI of the brain. I also possibly need MRA of head and neck to better visualize posterior circulation. Hyperglycemia consult given history of type 2 diabetes mellitus. Avoid anticoagulants and antiplatelets for the next 24 hours. CODE STATUS discussion completed with the patient and the patient's [id number]. Patient would like to be a DNR/DNI in the event of a cardiopulmonary arrest. Plan of care coordinated with the hospitalist service. History of Present Illness Reason for Consultation: Stroke status post TNKase administration History of Present Illness 68-year-old male with a past medical history of type 2 diabetes mellitus, hypertension, hyperlipidemia, morbid obesity and degenerative joint disease presenting to the ER due to ongoing dizziness and vomiting. His last known normal was 10:30 AM this morning. 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 He then sat down for breakfast in the morning and soon after 10:30 AM he had severe dizziness with nausea and vomiting. He stood up and was falling forward. EMS was called and he was brought to the ER. There was a stroke protocol and he was evaluated by the [facility] stroke neurologist. The decision was made to give full dose TNKase and the patient was administered TNKase at 1407. His symptoms promptly resolved. His initial NIH stroke scale was 1 and is now currently 0. He denies any chest pain, shortness of breath, fevers or chills. He denies any nausea at this moment. He does endorse some very mild dizziness. He had a CT of his head and neck with and without contrast. Neck CT revealed calcified plaque of the V4 segment left vertebral artery resulting in short segment high-grade stenosis. Unremarkable CT head and neck otherwise. EKG normal sinus rhythm on admission. No signs of ischemic changes. Troponin unremarkable. Allergies Allergy/AdvReac Type Severity Reaction Status Date / Time morphine AdvReac Intermediate SEVERE Verified 11/08/23 08:53 NAUSEA AND VOMITING Home Medications Medication Instructions Recorded Confirmed Type insulin syringe-needle U-100 0.5 #100 ea 03/23/19 11/08/23 Rx mL 29 gauge x 1/2" (BD Insulin Syringe) naproxen sodium 220 mg tablet 440 - 880 mg PO BID PRN Pain 06/19/20 11/08/23 History (Aleve) blood sugar diagnostic (OneTouch #100 ea 12/03/20 11/08/23 Rx Ultra Blue Test Strip) acetaminophen 325 mg tablet 325 mg PO QID PRN Pain 04/19/22 11/08/23 History (Tylenol) aspirin 81 mg tablet,delayed 81 mg PO DAILY 12/27/22 11/08/23 History release metformin 500 mg tablet 1,000 mg (2 x 500 mg) PO BID #360 01/04/23 11/08/23 Rx tabs simvastatin 40 mg tablet 40 mg PO QPM #90 tabs 01/04/23 11/08/23 Rx insulin human U-100 NPH-regulr 60 unit (0.6 mL) subcut BID #40 mL 01/31/23 11/08/23 Rx 70-30 mix 100 unit/mL subcutaneous susp (Novolin 70/30 U-100 Insulin) lisinopril 40 mg tablet 40 mg PO QAM 90 days #90 tabs 10/13/23 11/08/23 Rx amlodipine 2.5 mg tablet 2.5 mg PO DAILY 30 days #30 tabs 11/08/23 11/08/23 Rx tirzepatide 2.5 mg/0.5 mL 2.5 mg (0.5 mL) subcut .q7days 28 11/08/23 11/08/23 Rx subcutaneous pen injector days #2 mL (Endyunjaro) Patient History Medical History (Updated 12/10/23 @ 15:10 by Zechariah Garcia MD) 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 07/01/19: Grade 2 view, MAC 4, ETT 8.0 atraumatic x 1. History of tooth extraction History of cataract surgery RT/LEFT History of total knee replacement RT History of colonoscopy Family History Grandfather Arthritis Grandmother Arthritis Mother Diabetes Hx of CABG Cancer Cardiac disorder Breast cancer Myocardial infarction Daughter Metastatic melanoma Father Cancer Prostate cancer Denies family history of Ovarian cancer Lung cancer Colorectal cancer Social History Smoking Status: Never smoker Second Hand Exposure: No; Do You Dip or Chew Tobacco: No; Hx Alcohol Use: No Hx Substance Use: No Preferred Language: Serbian Communication Ability: Effective 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 Patient is in no apparent distress. Patient is well-developed. Eyes: Pupils are equal round and reactive to light. Conjunctivae are normal. Anicteric sclera. Ears nose, mouth and throat: Mallampati class 2. Normal posterior oropharynx. Uvula is midline. Neck: Trachea is midline. Visual inspection is normal. Respiratory: Clear to auscultation bilaterally. No use of accessory muscles. No significant clubbing noted. Cardiovascular: Regular rate and rhythm. No murmurs. No edema. Gastrointestinal: Normal bowel sounds, soft, nontender and nondistended. No hepatosplenomegaly noted. Musculoskeletal: No cyanosis. Patient is able to move all extremities. Strength is 5 out of 5 in the upper and lower extremities. Skin: No rashes, warm dry and intact. Neurologic: No obvious focal neurological deficits seen. Psychiatric: Alert and oriented x3 with a euthymic affect. Results & Data Results & Data Vital Signs (Past 12 Hours) Vital Signs Temp Pulse Pulse Resp BP BP Pulse Ox 12/10/23 15:00 36.7 C 72 17 135/78 99 12/10/23 14:45 36.7 C 63 17 137/72 99 12/10/23 14:45 36.7 C 63 17 137/72 100 12/10/23 14:30 67 16 132/70 98 12/10/23 14:22 36.8 C 64 16 136/69 97 12/10/23 14:00 68 13 147/65 H 98 12/10/23 13:45 67 18 149/69 H 94 12/10/23 13:30 63 15 152/66 H 97 12/10/23 13:24 68 17 153/74 H 98 12/10/23 13:03 62 12/10/23 12:46 68 26 H 169/77 H 98 O2 Del Method 12/10/23 15:00 Room Air 12/10/23 14:45 Room Air 12/10/23 14:45 Room Air 12/10/23 14:30 Room Air 12/10/23 14:22 Room Air 12/10/23 14:00 Room Air 12/10/23 13:45 Room Air 12/10/23 13:30 Room Air 12/10/23 13:24 Room Air 12/10/23 13:03 12/10/23 12:46 Room Air Coding Level of Care Code 52904 IN/OBS CONSULT LVL 4,60M Diagnoses 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
[2023-12-10] MEDS ORDERED: ALUMINUM/MAGNESIUM/SIMETH (MAALOX MAX) 30 ML UDC PO PRN (16:16)
[2023-12-10] MEDS ORDERED: POLYETHYLENE (MIRALAX) 17 GM PACK PO PRN (16:16)
[2023-12-10] MEDS ORDERED: MECLIZINE 12.5 MG TAB PO SCH (16:16)
[2023-12-10] MEDS: ICU Protocol for HYPERglycemia SCH (17:29)
[2023-12-10] MEDS: ONDANSETRON INJ 2 MG/ML 2 ML VIAL IV PRN (17:29)
[2023-12-10] MEDS: methylPREDNISolone 40 MG in SYRINGE 0 ML IV SCH (17:29)
[2023-12-10] MEDS: MECLIZINE 12.5 MG TAB PO STA (17:30)
[2023-12-10] MEDS: COUGH DROP (SUGAR FREE) LOZ 24 LOZ/1 BOX BUCCAL ONE (17:58)
[2023-12-10] MEDS: STAT IV/IM STA (17:58)
[2023-12-10 18:07] LABS: Appearance Urine Clear (Clear); Bacteria Urine Automated Negative (Negative); Bilirubin Urine Negative (Negative); Blood Urine Negative (Negative); Color Urine Yellow; Glucose Urine UA Negative (Negative); Ketones Urine 1+ (Negative); Leukocyte Esterase Urine Negative (Negative); Nitrite Urine Negative (Negative); Protein Urine Trace (Negative); RBC Urine Automated 0-4 /hpf (0-4); Specific Gravity Urine > 1.045 (1.000-1.030); Urobilinogen Urine Negative (Negative)
[2023-12-10 18:25] LABS: Epithelial Cell Urine Auto 0-5 /lpf (0-5)
[2023-12-10] MEDS: COUGH DROP (SUGAR FREE) LOZ 24 LOZ/1 BOX BUCCAL STA (18:59)
--- NOTE | 2023-12-10 20:09 | Magnetic Resonance Report ---
MR brain wo con HISTORY: 68 years-old Male dizziness, possible CVA acute dizziness with stroke like symptoms COMPARISON: Head CT of same day TECHNIQUE: Multiplanar multisequence MRI of the brain was obtained without the use of IV contrast. FINDINGS: No restricted diffusion. Midline structures appear unremarkable. Degenerative changes of the imaged c ervical spine. No acute intracranial hemorrhage, midline shift, abnormal extra-axial collection, hydr ocephalus or intra-axial. Cerebral venous sinuses and major arterial flow voids appear patent. The sk ull, orbits and soft tissues are unremarkable. Prior bilateral lens repair. Mild mucosal thickening o f the paranasal sinuses. The mastoid air cells are clear. Mild T2/FLAIR hyperintense foci throughout the white matter suggestive of probable chronic microvascu lar ischemic disease. Mild involutional changes. IMPRESSION: No acute intracranial abnormality. No acute or subacute infarct. ACT 112: Negative or not required by law. The above report was generated using voice recognition software. It may contain grammatical, syntax o r spelling errors. Electronically signed by: Kamaljit Conroy M.D. 12/10/2023 8:07 PM
[2023-12-10] MEDS: MECLIZINE 12.5 MG TAB PO SCH (20:14)
[2023-12-10] MEDS ORDERED: GLUCOSE 10 TAB/TUBE PO PRN (23:31)
[2023-12-10] MEDS ORDERED: CARBOHYDRATES FOR HYPOGLYCEMIA PO PRN (23:31)
[2023-12-10] MEDS ORDERED: DEXTROSE 50% 50 ML SYRINGE IV PRN (23:31)
[2023-12-10] MEDS ORDERED: GLUCOSE 40% GEL 15 GM TUBE PO PRN (23:31)
[2023-12-10] MEDS ORDERED: GLUCAGON FOR INJ 1 MG VIAL SQ PRN (23:31)
[2023-12-11] MEDS: INSULIN ASPART PER UNIT CHARGE SC SCH (00:04)
[2023-12-11] MEDS: PANTOprazole 40 MG in SYRINGE 0 ML IV ONE (00:32)
[2023-12-11 04:20] LABS: Basophils # (auto) 0.02 K/uL (0.00-0.20); Basophils % (auto) 0.2 %; Eosinophils # (auto) 0.01 K/uL (0.00-0.50); Eosinophils % (auto) 0.1 %; Hematocrit (blood only) 42.6 % (42.0-52.0); Hemoglobin 14.3 g/dl (14.0-18.0); Immature Granulocytes # (auto) 0.06 K/uL (0.01-0.20); Immature Granulocytes % (auto) 0.5 %; Lymphocytes # (auto) 0.95 K/uL (1.20-3.40); Lymphocytes % (auto) 8.4 %; Mean Corpuscular Hemoglobin 29.7 pg (25.0-34.0); Mean Corpuscular Hgb Conc 33.6 g/dL (32.0-36.0); Mean Corpuscular Volume 88.6 fL (80.0-100.0); Monocytes % (auto) 0.9 %; Neutrophils # (auto) 10.22 K/uL (1.40-6.50); Neutrophils % (auto) 89.9 %; Platelet Count 326 K/uL (130-400); RDW Coefficient of Variation 12.3 % (11.5-14.5); RDW Standard Deviation 40.6 fL (36.4-46.3); Red Blood Count 4.81 M/uL (4.70-6.10); White Blood Count 11.36 K/ul (4.8-10.8)
[2023-12-11 04:35] LABS: BUN Creatinine Ratio 30.6 (10-20); Chol HDL Ratio 1.9 (0-5); Creatinine Clr Calc Pharmacy 110.6 ml/min; Est GFR (African American) 105.2 ml/min; Est GFR (Non-African American) 90.8 ml/min; Magnesium 1.8 mg/dl (1.7-2.4); Potassium 4.7 mmol/L (3.5-5.1)
--- NOTE | 2023-12-11 08:43 | Electrocardiogram Report ---
Test Reason : Blood Pressure : / mmHG Vent. Rate : 065 BPM Atrial Rate : 065 BPM P-R Int : 196 ms QRS Dur : 096 ms QT Int : 438 ms P-R-T Axes : 050 008 047 degrees QTc Int : 455 ms Normal sinus rhythm Normal ECG When compared with ECG of 19-APR-2022 11:40, Aberrant conduction is no longer Present Confirmed by Dorian Larose ([id number]) on 12/11/2023 8:43:16 AM Referred By: REFERRED SELF Confirmed By:Dorian Larose
--- NOTE | 2023-12-11 09:11 | XCELERA ---
[id number]
--- NOTE | 2023-12-11 10:27 | Critical Care Progress Note ---
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 MRI brain without evidence of acute stroke. Neurology consultation appreciated. Possible inner ear infection. Patient due for CT head status 24 hours status post tPA at around 1407. If that CT head is clear, will start with antiplatelets and DVT prophylaxis. Continue PT and OT therapy. Continue antihypertensives and high intensity statin Patient is stable for downgrade to the floor once CT head comes back negative. Admission and Anticipated Discharge Date Admission Date: December 10, 2023 Subjective Patient seen and examined. NIH stroke scale is 0. No overnight events. Neurology evaluated the patient and feels that he has a middle inner ear infection. Review of Systems Review of Systems: All systems reviewed & are unremarkable except as noted in HPI & below Physical Exam Physical Exam: Constitutional: Patient appears to be of their stated age. Patient is in no apparent distress. Patient is well-developed. Eyes: Pupils are equal round and reactive to light. Conjunctivae are normal. Anicteric sclera. Ears nose, mouth and throat: Mallampati class 2. Normal posterior oropharynx. Uvula is midline. Neck: Trachea is midline. Visual inspection is normal. Respiratory: Clear to auscultation bilaterally. No use of accessory muscles. No significant clubbing noted. Cardiovascular: Regular rate and rhythm. No murmurs. No edema. Gastrointestinal: Normal bowel sounds, soft, nontender and nondistended. No hepatosplenomegaly noted. Musculoskeletal: No cyanosis. Patient is able to move all extremities. Str ength is 5 out of 5 in the upper and lower extremities. Skin: No rashes, warm dry and intact. Neurologic: No obvious focal neurological deficits seen. Psychiatric: Alert and oriented x3 with a euthymic affect. Results & Data Results & Data Vital Signs (Past 12 Hours) Vital Signs Temp Pulse Pulse Resp BP Pulse Ox O2 Del Method 12/11/23 10:09 93 H 18 148/70 H 95 Room Air 12/11/23 09:09 97 H 20 151/82 H 95 Room Air 12/11/23 08:09 87 20 137/71 94 Room Air 12/11/23 07:09 91 H 20 123/66 95 Room Air 12/11/23 07:00 87 12/11/23 06:09 90 20 139/67 93 Room Air 12/11/23 05:09 86 22 117/52 L 93 Room Air 12/11/23 04:09 91 H 17 138/71 94 Room Air 12/11/23 03:50 36.8 C 12/11/23 03:09 84 20 112/57 L 94 Room Air 12/11/23 02:09 85 20 136/73 92 Room Air 12/11/23 01:09 92 H 14 109/70 96 Room Air 12/11/23 00:23 89 12/11/23 00:09 36.8 C 15 118/67 93 Room Air 12/10/23 23:09 89 19 141/62 H 92 Room Air Coding Level of Care Code 98393 SUB INP/OBS CARE Diagnoses 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
--- NOTE | 2023-12-11 10:32 | Neurology Consultation ---
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 The fact that he seemed "pulled to the right" means that it may have been the right inner ear. There is no evidence to suggest that this was central/cerebral and the MRI of the brain showed no acute stroke. The patient does have stenosis (likely old) of the left vertebral artery (V4 segment) but I am not certain this has anything to do with his symptoms. He did receive tPA but, again, I do not know if this made any improvement in his symptoms. His symptoms did get better overnight and he is only having very mild positional and resting vertigo. The patient has multiple stroke risk factors, including hypertension, longstanding diabetes, and dyslipidemia. He has been on 81 mg aspirin Recommendations: 1. Continue meclizine but consider 25 mg 3 times a day, if 12.5 does not help. He could do this regular for 1 week and then use it as needed. 2. Control blood pressure as you are doing 3. Control glucose as you are doing 4. Keep simvastatin the same at 40 mg a day. His total cholesterol is already quite low at 112. 5. Increase activity as able 6. Discontinue 81 mg ASA and replace with clopidogrel 75 mg daily. This may do a better job at keeping open large arteries. Overall, I spent a total of 75 minutes with this case including review of records, review of MRI films, direct evaluation the patient, report generation, and discussion of the case with the patient, RN, Dr. Garcia, and daughter at bedside, as well as Dr. Ivey, including differential diagnosis and treatment options. History of Present Illness Reason for Consultation: Patient is a 68-year-old, who I was asked to see at the request of Chilango Nassar PA-C and Dr. Hill, for neurologic consultation regarding possible stroke Requesting Physician: Dr. Garcia Attending Physician: Levy Ivey MD History of Present Illness This patient has a 20-year history of type 2 diabetes currently on insulin and metformin. He has a longstanding history of hypertension and dyslipidemia as well. He has been on 81 mg aspirin tablet daily for years. The patient's daughter is present during the history and physical. She helps add information. Patient tells me that over the last 2 weeks he has had intermittent episodes of vertiginous symptoms with 2 episodes lasting about an hour or so in the last week. He would have no nausea or vomiting and they faded away with time. On December 09, he woke up at 0200 as usual to milk counts. He came back in at 0430 and napped for 2 more hours (as usual). He got up and fed the animals and around 0900 he came in to make a breakfast (sutton, eggs, toast) he was doing well when around 1030, he stood up and suddenly had severe whirling and spinning being pulled to the right. His family noticed that he was walking to the left but the patient said this was to compensate because he was being pulled to the right. He had no ear pain, hearing loss, or tinnitus. This persisted by an hour he was having multiple nausea and vomiting episodes (over a dozen). When he left his head perfectly still lying flat with his eyes closed he felt a little better but he still had the vertigo. He did not notice any new vision issues or any focal weakness or numbness. He felt "drained" and weak all over. He had no speech or mentation problem that he was aware and his daughter verifies this although she felt that he may have had a little facial droop on the left. He arrived emergency room at 1246 on December 09, with a temperature of 36.8, pulse 68 and regular, respiratory rate 26, blood pressure 169/77, and O2 saturation 98%. His blood pressure lowered into the normal range in the ER. He continued to have significant positional vertigo. Neuroexam showed no focal findings, meningeal signs, or encephalopathy. CBC and CHEM profile were unremarkable although the glucose was 190. Chest x-ray was unremarkable. CT scan of the head showed no acute findings. CT angiography of the head and neck were remarkable only for a high-grade stenosis in the left V4 segment (vertebral). Echocardiogram showed some dilation of left atrium and left ventricle with no vegetations or shunt. MRI of the brain without contrast showed no acute stroke. There was no other lesions noted in the inner ears or brain. Some mild old nonspecific small vessel ischemic change was noted. I reviewed these films. This morning, CBC was unremarkable. White count was elevated as was glucose at 234, but the patient has been given IV methylprednisolone 40 mg on December 09. He was also given meclizine 12.5 mg 3 times a day. This morning he feels much better although he has some very slight vertiginous feelings at rest and with movement. He has no nausea or vomiting. He has no other issues or problems. He grades his vertiginous feelings as a 1 out of 10 compared to yesterday when it was 10 out of 10. He is eating well this morning. Blood pressure was 148/70. Rest of his labs were unremarkable. Hemoglobin A1c is pending and total cholesterol was 112. Triglycerides were 56. Allergies Allergy/AdvReac Type Severity Reaction Status Date / Time morphine AdvReac Intermediate SEVERE Verified 11/08/23 08:53 NAUSEA AND VOMITING Home Medications Medication Instructions Recorded Confirmed Type insulin syringe-needle U-100 0.5 #100 ea 03/23/19 12/10/23 Rx mL 29 gauge x 1/2" (BD Insulin Syringe) blood sugar diagnostic (OneTouch #100 ea 12/03/20 12/10/23 Rx Ultra Blue Test Strip) acetaminophen 325 mg tablet 650 mg PO QID PRN Pain 04/19/22 12/10/23 History (Tylenol) amlodipine 2.5 mg tablet 2.5 mg PO QAM 12/10/23 12/10/23 History aspirin 81 mg tablet,delayed 81 mg PO QAM 12/10/23 12/10/23 History release empagliflozin 25 mg tablet 25 mg PO QAM 12/10/23 12/10/23 History (Jardiance) insulin human U-100 NPH-regulr 60 unit subcut BID 12/10/23 12/10/23 History 70-30 mix 100 unit/mL subcutaneous susp (Novolin 70/30 U-100 Insulin) lisinopril 40 mg tablet 40 mg PO QAM 12/10/23 12/10/23 History metformin 500 mg tablet 1,000 mg PO BID 12/10/23 12/10/23 History simvastatin 40 mg tablet 40 mg PO QPM 12/10/23 12/10/23 History tirzepatide 2.5 mg/0.5 mL 2.5 mg subcut WK 12/10/23 12/10/23 History subcutaneous pen injector (Kirby) Patient History Medical History 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 07/01/19: Grade 2 view, MAC 4, ETT 8.0 atraumatic x 1. History of tooth extraction History of cataract surgery RT/LEFT History of total knee replacement RT History of colonoscopy Family History Grandfather Arthritis Grandmother Arthritis Mother , age 83 Diabetes Hx of CABG Cancer Cardiac disorder Breast cancer Myocardial infarction Daughter Metastatic melanoma Father Cancer Prostate cancer Denies family history of Ovarian cancer Lung cancer Colorectal cancer Social History (Updated 12/11/23 @ 10:21 by Vazquez Moon MD) Smoking Status: Never smoker Second Hand Exposure: No; Do You Dip or Chew Tobacco: No; Hx Alcohol Use: No Hx Substance Use: No Preferred Language: Greenlandic Communication Ability: Effective Volleyball Referee Required: No Beliefs That Will Affect Care: None Current Living Situation: Family current occupational status: employed current occupation: Current dairy machine operator farmworker Feels Safe at Home: Yes Diet: regular caffeine: Yes (rare ) Physical Activity Frequency: Daily Seatbelt Use: always Sunscreen Use: No Assistive Devices: Denture - Upper and Denture - Lower Review of Systems Constitutional: + fatigue and + weakness; no fever Eyes: no diplopia, no eye pain and no worsening vision Ear, Nose, Mouth, Throat: + dizziness; no ear pain, no tinnitus, n o hearing loss, no snoring, no hoarseness and no dysphagia Respiratory: no cough and no dyspnea Cardiovascular: no chest pain, no palpitations and no lightheadedness Gastrointestinal: no abdominal pain, no nausea and no vomiting Musculoskeletal: no back pain, no neck pain, no radicular pain, no joint pain and no myalgia Integumentary: no rash and no lesions Neurologic: + gait abnormality and + dizziness; no l ocalized weakness, no generalized weakness, no tingling, no numbness, no tremor(s), no abnormal movements, no headache(s), no abnormal speech, no confusion and no memory loss Psychiatric: no depression, no irritability, no anxiety, no difficulty concentrating, no confusion and no hallucinations Endocrine: no fatigue and no flushing Hematologic / Lymphatic: no easy bleeding and no easy bruising Allergy / Immunological: no urticaria and no problem reported Exam (Neuro) Physical Exam: The patient is right-handed. The patient is awake, alert, and attentive. Speech is normal without any aphasia or dysarthria. Mentation and thought processes are intact, with full orientation and normal fund of knowledge. Mood and affect are normal and appropriate. Appearance and grooming are normal. Short and long-term memory are intact. The discs are very difficult to visualize due to small pupils and previous cataract surgery. Pupils are 2-3 mm bilaterally and reactive to light. Extraocular eye muscles are intact without nystagmus. Visual acuity and visual chavez seem normal grossly to confrontation. There are no deficits to sensation in the face in all 3 distributions of the fifth cranial nerve bilaterally. Corneal reflexes are positive bilaterally. Faci al strength and symmetry was normal bilaterally. Hearing seems intact grossly to voice and finger rub bilaterally. Palate moves well without asymmetry. There is normal sternocleidomastoid and trapezius strength bilaterally. Tongue is midline with good strength bilaterally. Neck has a full range of motion without discomfort. There are no cervical bruits bilaterally. There are no cranial or ocular bruits. Heart is without murmur. There is a regular rhythm and rate. Cervical, thoracic, and lumbar spine are nontender to palpation. Gait was not tested but stance sitting up in bed is reasonable. There is no nystagmus. With outstretched arms there is no drift. There are no resting, postural, or action tremors. There is no ataxia with finger to nose testing. There is good facility in the hands. No other abnormal involuntary movements are noted. Motor strength is 5/5 diffusely in the arms bilaterally including deltoids, biceps, triceps, brachioradialis, wrist flexors and extensors, auto wrecker, and intrinsic hand muscles. Motor strength is 5/5 diffusely in the legs bilaterally including hip flexors, quadriceps, hamstrings, gastrocnemius, tibialis anterior, tibialis posterior, and Peroneii muscles bilaterally. Toe extensors are normal and there is good bulk in the extensor digitorum brevis muscles bilaterally. The limbs have good tone without rigidity or spasticity. There is no atrophy noted in the muscles. Muscle bulk is normal, there is no tenderness to palpation, no myotonia to percussion, and no fasciculations seen. Sensory examination is intact to touch and pin throughout all 4 limbs diffusely. Reflexes are 2/4 in the biceps, triceps, brachioradialis, and quadriceps tendons bilaterally. Achilles tendon reflexes are absent bilaterally. Toes are downgoing with plantar stimulation bilaterally. Peripheral pulses are present and of normal quality distally in all 4 limbs. There is no peripheral edema noted in the limbs. Results & Data Vital Signs (Past 12 Hours) Vital Signs Temp Pulse Pulse Resp BP Pulse Ox O2 Del Method 12/11/23 09:09 97 H 20 151/82 H 95 Room Air 12/11/23 08:09 87 20 137/71 94 Room Air 12/11/23 07:09 91 H 20 123/66 95 Room Air 12/11/23 07:00 87 12/11/23 06:09 90 20 139/67 93 Room Air 12/11/23 05:09 86 22 117/52 L 93 Room Air 12/11/23 04:09 91 H 17 138/71 94 Room Air 12/11/23 03:50 36.8 C 12/11/23 03:09 84 20 112/57 L 94 Room Air 12/11/23 02:09 85 20 136/73 92 Room Air 12/11/23 01:09 92 H 14 109/70 96 Room Air 12/11/23 00:23 89 12/11/23 00:09 36.8 C 15 118/67 93 Room Air 12/10/23 23:09 89 19 141/62 H 92 Room Air 12/10/23 22:09 89 18 137/77 91 Room Air PG Care Time/CCT Total # of Minutes Spent Total Time Spent with Patient: Total time spent is greater than 50% in coordination of care (as documented) at patient's floor/unit and/or counseling patient: Coding Level of Care Code 51372 INT INP/OBS CARE 3/75MIN Diagnoses Vertigo R42 Stenosis of left vertebral artery I65.02 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
--- NOTE | 2023-12-11 10:58 | Discharge Summary ---
Date of Service December 11, 2023 Admission HPI Per Admitting Provider Attending: Dr. Ivey This is a 68-year-old male that follows with Dr. Francoise Carlton with [facility]. He has a PMH including diabetes mellitus type 2 requiring insulin, obesity with BMI of 35.6 kg/m thyroidism, history of COVID-19, postoperative ileus in 2019, plantar fasciitis,, hypertension, hyperlipidemia. Patient also has a history of kidney mass and underwent partial nephrectomy. Patient presents today with vertigo. He was found to have some nystagmus on examination. NIH score was "0". He underwent CTA of the head head and neck which revealed high grade stenosis in the V4 segment of the left vertebral artery. Neurology was consulted and the decision was made to administer 25mg of Tenecteplase. This was administered at 14:09pm. Patient seen in emergency department at 14:27 for admission to the ICU for 24 hour observation. Patient denies any previous history of stroke or thromboembolic disease. No history of tobacco abuse. Home medications do include Atovastatin 40mg PO daily Principal Diagnosis Acute labyrinthitis with vertigo Discharge Exam General-alert and oriented x3, no fever, no chills HEENT-head atraumatic and normocephalic, pupils equal and reactive to light, extraocular muscles intact Neck-no lymphadenopathy or thyromegaly, trachea midline Chest-clear to auscultation percussion. No rales, wheezing or rhonchi Cardiac-regular rate and rhythm, normal S1 and S2 Abdomen-normal bowel sounds, nontender, no hepatosplenomegaly Extremities-no cyanosis, clubbing, or edema Neuro-cranial nerves II through XII intact, motor and sensory function within normal limits, strength symmetrical, no focal deficits. Vertiginous with head turning and movement Psych-normal affect, normal mood Discharge Data Allergies Allergy/AdvReac Type Severity Reaction Status Date / Time morphine AdvReac Intermediate SEVERE Verified 11/08/23 08:53 NAUSEA AND VOMITING Consultations 12/10/23 14:12 ED Decision to Admit Stat 12/10/23 15:14 Consult Neurology Routine 12/10/23 16:16 Consult Multiple Spindle Router Operator Routine Consult Neurology Routine Ordered Studies 12/10/23 13:03 CT angio head w con Stat CT angio neck with con Stat CT head/brain wo con Stat 12/10/23 15:13 MRI Brain [MR brain wo con] Urgent 12/11/23 14:53 CT head/brain wo con Routine Hospital Course (1) Vertigo: This appears to be acute labyrinthitis. He is now on meclizine and prednisone which will continue at discharge until he is symptom-free. He has been cautioned not to operate any heavy machinery until he has no further vertigo. Brain MRI scan negative for acute CVA. Appreciate neurology consultation and recommendations. (2) Stenosis of left vertebral artery: I branch of the left vertebral artery is occluded. It is impossible determine at what point this occurred. There is no associated CVA. 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 He was cautioned that prednisone may elevate somewhat while on prednisone (4) Hypertension: Stable. Continue current medical management (5) Hyperlipidemia: Stable. Continue current medical Plan Home today, December 10. He will remain on meclizine 12.5 mg 3 times a day and a tapering dose of prednisone. He was cautioned not to operate any heavy machinery until his vertigo completely resolves. He will follow-up with his PCP within 1 week. . Total Time Total Time Spent Total Time Spent (In Minutes): 50-minute Discharge Plan Discharge Items Patient Disposition: Home - Self-Care Reason For Visit: STROKE LIKE SYMPTOMS Discharge Diagnosis: Acute labyrinthitis with vertigo Activity: As commented below Activity Comment: Avoid operating any heavy machinery until vertigo has completely resolved Non-emergency contact: Primary Care Provider Call non-emergency contact if: your symptoms worsen Follow-up/Referrals: Francoise Carlton MD [Primary Care Provider] - Diet: Carb Consistent or DM2 and Heart Healthy Addtl Attending Provider Instructions: Avoid operating any heavy machinery until vertigo has completely resolved. Take prednisone in a tapering dose fashion as directed. Take meclizine 3 times daily until vertigo completely resolves then stop meclizine Pending Studies at Discharge: No Stand-Alone Forms: My [facility], Smoking Cessation Medications and DC Order Prescriptions: New meclizine 12.5 mg Tablet 12.5 mg PO TID Qty: 21 0RF prednisone 10 mg tablet See Rx Instructions .ROUTE .COMPLEX Qty: 12 0RF Rx Instructions: 10 mg orally 3 times a day for 2 days, then 10 mg twice a day for 2 days, then 10 mg once a day for 2 days, then stop Continued (DME) insulin syringe-needle U-100 [BD Insulin Syringe] 0.5 mL 29 gauge x 1/2" syringe See Dose Instructions .ROUTE .MEDSUPPLY Qty: 100 5RF Dose Instruction: As directed Rx Instructions: use daily when injecting insulin or as directed (DME) OneTouch Ultra Blue Test Strip Strip See Rx Instructions .ROUTE .MEDSUPPLY Qty: 100 5RF Rx Instructions: TEST FOUR TIMES DAILY. acetaminophen [Tylenol] 325 mg Tablet 650 mg PO QID PRN (Reason: Pain) Novolin 70/30 U-100 Insulin 100 unit/mL (70-30) suspension 60 unit SUBCUT BID amlodipine 2.5 mg tablet 2.5 mg PO QAM Mounjaro 2.5 mg/0.5 mL pen injector 2.5 mg SUBCUT WK metformin 500 mg tablet 1,000 mg PO BID simvastatin 40 mg tablet 40 mg PO QPM Jardiance 25 mg tablet 25 mg PO QAM aspirin [Aspirin Low-Strength] 81 mg Tablet,Delayed Release (Dr/Ec) 81 mg PO QAM lisinopril 40 mg tablet 40 mg PO QAM Discharge Orders: Discharge Order (Routine); Ordered 12/11/23 Ordered By: Levy Ivey Admission Data Admit Date/Time: 12/10/23 14:58 Attending Provider: Levy Ivey Admit Provider: Levy Ivey Primary Care Provider: Francoise Carlton Other Providers: Bhavesh Parra; Vazquez Moon; Michaela Ambrocio; Alexia Mack; Lindy Fritz; Rudolph Ulloa; Levy Ivey; Zechariah Garcia Coding Level of Care Code 01135 INP/OBS DISCH >30 MIN Diagnoses Vertigo R42 Stenosis of left vertebral artery I65.02 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
[2023-12-11] MEDS ORDERED: STROKE PATIENT DISCHARGE STA (11:00)
--- NOTE | 2023-12-11 15:14 | CT Scan Report ---
CT head/brain wo con CLINICAL HISTORY: 68 years-old Male with Post TPA/TNK 24 hour. Acute stroke like symptoms TECHNIQUE: Multiple axial CT images of the head were obtained without contrast. A dose lowering tech nique was utilized adhering to the principles of ALARA. CT DOSE: 625.8 mGy.cm COMPARISON: 12/10/2023 FINDINGS: No acute intracranial hemorrhage, midline shift, intracranial mass, hydrocephalus, territorial ischem ia or abnormal extra-axial collection. Chronic microvascular ischemic disease. The calvarium is intact. The paranasal sinuses, mastoid air cells, and middle ear cavities are clear . IMPRESSION: No acute intracranial abnormality. ACT 112: Negative or not required by law. The above report was generated using voice recognition software. It may contain grammatical, syntax o r spelling errors. Electronically signed by: Kamaljit Conroy M.D. 12/11/2023 3:12 PM
[2023-12-11] MEDS ORDERED: ATORVASTATIN 40 MG TAB PO SCH (21:00)
[2023-12-12 08:20] LABS: Estimated Average Glucose 169 mg/dl; Hemoglobin A1C 7.5 % (4.5-5.6)
== END 2023-12-11 15:50 | disposition home or self-care (01) | DRG 149 ==
LOC: ED 12:45 → 1E 14:58